=== PATIENT | male | born 1975 | race Caucasian/White ===

== ENCOUNTER 2018-05-24 12:50 | Emergency (ER) | payer OTHER ==
[2018-05-24] MEDS ORDERED: Diphtheria,Pertussis(Acell),Tetanus Vaccine 0.5 ML Syringe IM ONE (13:27)
--- NOTE | 2018-05-24 13:34 | EDM.PDOC ---
ED HPI GENERAL MEDICAL PROBLEM - General Chief Complaint: Upper Extremity Injury/Pain Stated Complaint: HAND INJURY Time Seen by Provider: 05/24/18 13:05 Source of Information: Reports: Patient History Limitations: Reports: No Limitations - History of Present Illness INITIAL COMMENTS - FREE TEXT/NARRATIVE: HISTORY AND PHYSICAL: History of present illness: Patient is a 43-year-old male who presents to the clinic today following an injury that happened about 30 minutes ago at work where a piece of metal punctured the top of his left hand adjacent to his thumb. Patient states that he is fully able to move his hand wrist and fingers but has a sensation that feels "tingly". Patient states that he is in minimal pain at this time. Patient states there is very minimal bleeding at the time of incident. He states the metal object that went in was about the thickness of the pencil and went in about 3-4 cm and came out. He states there was wired tubing that he is worried about that got stuck inside. He has not had any other injuries prior on this hand. Patient is not up-to-date with his Tdap vaccine. Patient denies fever, chills, nausea, vomiting, any GI or symptoms. Patient denies any health history. Review of systems: As per history of present illness and below otherwise all systems reviewed and negative. Past medical history: As per history of present illness and as reviewed below otherwise noncontributory. Surgical history: As per history of present illness and as reviewed below otherwise noncontributory. Social history: See social history for further information Family history: As per history of present illness and as reviewed below otherwise noncontributory. Physical exam: General: Patient is alert, oriented, and in no acute distress. HEENT: Atraumatic, normocephalic, pupils equal and reactive bilaterally, negative for conjunctival pallor or scleral icterus, mucous membranes moist, TMs normal bilaterally, throat clear, neck supple, nontender, trachea midline. No drooling or trismus noted. No meningeal signs. No hot potato voice noted. Lungs: Clear to auscultation, breath sounds equal bilaterally, chest nontender. Heart: S1S2, regular rate and rhythm without overt murmur Abdomen: Soft, nondistended, nontender. Negative for masses or hepatosplenomegaly. Negative for costovertebral tenderness. Pelvis: Stable nontender. Genitourinary: Deferred. Rectal: Deferred. Skin: See extremities. Intact, warm, dry. No lesions or rashes noted. Extremities: Left hand has a pinpoint area of blood on the dorsal aspect at the base of the thumb. Negative snuffbox tenderness. There is some surrounding edema without hematoma or obvious fracture. Atraumatic, negative for cords or calf pain. Neurovascular unremarkable. Neuro: Patient able to feel all fingers on left hand with intact strength of all fingers. Awake, alert, oriented. Cranial nerves II through XII unremarkable. Cerebellum unremarkable. Motor and sensory unremarkable throughout. Exam nonfocal. Notes: Dopplers were obtained of the radial artery and ulnar artery and were grossly intact. Patient was offered medication for pain control but he declines at this time. Tdap updated today. X-ray shows no acute osseous abnormality, dislocation or fracture. Dr. Escobar did happened to be here for another patient and reviewed his case with her. She did look at the x-ray herself and encouraged Genaro wrap along with oral antibiotic. Patient was informed of the need for appropriate follow-up with the plastic surgeon and/or the orthopedic provider. He voices understanding and is agreeable to plan of care. Denies any further questions or concerns at this time. Diagnostics: Hand x-ray, left Therapeutics: Tdap, Genaro wrap Prescription: Keflex, Tramadol (#15) Impression: Puncture Wound, Left Hand injury Plan: 1. Take medications as prescribed. 2. Alternate Tylenol and ibuprofen as needed for mild to moderate pain / discomfort. You can use Tramadol for moderate to severe pain. Caution when doing activities outside of the household as this medication can cause drowsiness. Do not operate a vehicle or heavy equipment with this medication. 3. Follow up with Dr. Dillon, plastic surgery/hand specialist, for you hand. 4. Return to the ED as needed and as discussed. Definitive disposition and diagnosis as appropriate pending reevaluation and review of above. Left Hand Pain Score (Numeric/FACES): 4 - Related Data Allergies Allergy/AdvReac Type Severity Reaction Status Date / Time No Known Allergies Allergy Verified 05/24/18 13:20 Home Meds: Home Meds cephALEXin [Keflex] 500 mg PO TID 7 Days #21 cap 05/24/18 [Rx] traMADol [Ultram] 50 mg PO Q4H PRN #15 tab 05/24/18 [Rx] Past Medical History - Infectious Disease History Infectious Disease History: Reports: Chicken Pox Social & Family History - Family History Family Medical History: Noncontributory - Tobacco Use Smoking Status *Q: Current Every Day Smoker Years of Tobacco use: 30 Packs/Tins Daily: 1 - Recreational Drug Use Recreational Drug Use: No Review of Systems - Review of Systems Review Of Systems: ROS reveals no pertinent complaints other than HPI. ED EXAM, GENERAL - Physical Exam Exam: See Below (see dictation) Course - Vital Signs Last Recorded V/S: Last Vital Signs Temp 98.0 F 05/24/18 13:16 Pulse 103 H 05/24/18 13:16 Resp 18 05/24/18 13:16 BP 139/83 05/24/18 13:16 Pulse Ox 96 05/24/18 13:16 - Orders/Labs/Meds Orders: Active Orders 24 hr Category Date Time Status Vaccines to be Administered [RC] PER UNIT ROUTINE Care 05/24/18 13:27 Active Meds: Medications Discontinued Medications Generic Name Dose Route Start Last Admin Trade Name Freq PRN Reason Stop Dose Admin Diphtheria/Tetanus/Acell Pertussis 0.5 ml 05/24/18 13:27 05/24/18 13:50 Adacel IM 05/24/18 13:28 0.5 ml .ONCE ONE Administration Departure - Departure Time of Disposition: 15:01 Disposition: Home, Self-Care 01 Clinical Impression: Puncture wound Hand injury Qualifiers: Encounter type: initial encounter Laterality: left Qualified Code(s): S69.92XA - Unspecified injury of left wrist, hand and finger(s), initial encounter - Discharge Information Prescriptions: cephALEXin [Keflex] 500 mg PO TID 7 Days #21 cap traMADol [Ultram] 50 mg PO Q4H PRN #15 tab PRN Reason: Pain Referrals: PCP,Unknown [Primary Care Provider] - Forms: ED Department Discharge Additional Instructions: The following information is given to patients seen in the emergency department who are being discharged to home. This information is to outline your options for follow-up care. We provide all patients seen in our emergency department with a follow-up referral. The need for follow-up, as well as the timing and circumstances, are variable depending upon the specifics of your emergency department visit. If you don't have a primary care physician on staff, we will provide you with a referral. We always advise you to contact your personal physician following an emergency department visit to inform them of the circumstance of the visit and for follow-up with them and/or the need for any referrals to a consulting specialist. The emergency department will also refer you to a specialist when appropriate. This referral assures that you have the opportunity for follow-up care with a specialist. All of these measure are taken in an effort to provide you with optimal care, which includes your follow-up. Under all circumstances we always encourage you to contact your private physician who remains a resource for coordinating your care. When calling for follow-up care, please make the office aware that this follow-up is from your recent emergency room visit. If for any reason you are refused follow-up, please contact the Emergency Department at and asked to speak to the emergency department charge nurse. Primary Care [address] [place] [id number] [address] Specialty Care - [facility] [address] [place] [address], [address] [place] [address] 1. Take medications as prescribed. 2. Alternate Tylenol and ibuprofen as needed for mild to moderate pain / discomfort. You can use Tramadol for moderate to severe pain. Caution when doing activities outside of the household as this medication can cause drowsiness. Do not operate a vehicle or heavy equipment with this medication. 3. Follow up with Dr. Dillon, plastic surgery/hand specialist, for you hand. 4. Return to the ED as needed and as discussed. - My Orders Last 24 Hours: My Active Orders 05/24/18 13:27 Vaccines to be Administered [RC] PER UNIT ROUTINE - Assessment/Plan Last 24 Hours: My Active Orders 05/24/18 13:27 Vaccines to be Administered [RC] PER UNIT ROUTINE
--- NOTE | 2018-05-24 14:57 | CR ---
EXAMINATION: Left hand HISTORY: Injury COMPARISON: None TECHNIQUE: 3 views FINDINGS/IMPRESSION: There is no acute osseous abnormality, dislocation, or fracture. Bone mineralization and joint spaces are preserved. No soft tissue swelling or foreign body.
== END 2018-05-24 15:13 | disposition home or self-care (01) ==
LOC: MW.ED 12:50
DX: S61.432A Puncture wound without foreign body of left hand, initial encounter (principal); Z23 Encounter for immunization; F17.210 Nicotine dependence, cigarettes, uncomplicated; W45.8XXA Other foreign body or object entering through skin, initial encounter; Y99.0 Civilian activity done for income or pay
CPT/HCPCS: 73130-26-LT; 73130-LT; 90471; 90715; 99283-25